=== PATIENT | female | born 1970 | race African-American/Black ===

== ENCOUNTER 2019-12-30 09:18 | Emergency (ER) | payer BC, SELFPAY ==
[2019-12-30 09:33] VITALS: BP 110/63; PULSE 103; RESP 17; TEMP 36.6; O2SAT 100
[2019-12-30 10:27] LABS: Basophils Absolute Auto 0.1 K/mm3 (0.0-0.1); Basophils Percent Auto 0.7 % (0.2-1.2); Eosinophils Absolute Auto 0.2 K/mm3 (0-0.3); Eosinophils Percent Auto 2.4 % (0-4.4); Hemoglobin 7.9 g/dL (12.0-15.0); Immature Granulocyte Absolute 0.05 K/mm3 (0.00-0.031); Immature Granulocyte Percent A 0.5 % (0-0.5); Lymphocytes Absolute Auto 1.65 K/mm3 (0.9-3.2); Lymphocytes Percent Auto 17.6 % (18.3-44.2); Mean Corpuscular HGB Conc 31.6 g/dl (32-36); Mean Corpuscular Hemoglobin 37.6 pg (26-34); Mean Platelet Volume 9.7 fl (7.4-10.4); Monocytes Absolute Auto 0.9 K/mm3 (0.1-0.6); Monocytes Percent Auto 9.5 % (2.6-8.5); Neutrophils Absolute Auto 6.5 K/mm3 (1.3-6.7); Neutrophils Percent Auto 69.3 % (45.5-73.1); Platelet Count Result 145 k/mm3 (150-375); Red Cell Distribution Width 20.7 % (11.5-14.5); White Blood Count 9.4 K/mm3 (4.5-10.0)
[2019-12-30 10:42] LABS: Alanine Aminotransferase 27 U/L (4-35); Albumin Level 2.6 g/dL (3.5-5.1); Alkaline Phosphatase 106 U/L (38-126); Aspartate Amino Transferase 78 U/L (14-36); Bilirubin,Total 3.7 mg/dL (0.2-1.3); Blood Urea Nitrogen 10 mg/dL (7-17); Calcium 8.6 mg/dL (8.4-10.2); Carbon Dioxide 22 mmol/L (22-30); Chloride 101 mmol/L (98-107); Estimated CRCL calculation 71 ml/min; Estimated Glomerular Filt Rate > 60; Glucose 106 mg/dL (65-105); Lipase 264 U/L (23-300); Sodium 136 mmol/L (137-145)
[2019-12-30 10:46] LABS: Add Urine Microscopic? YES; Appearance Urine Clear (Clear); Bacteria Urine Trace /hpf; Bilirubin Urine 1+ (Negative); Blood Urine Negative (Negative); Color Urine Amber (Yellow); Glucose Urine UA Negative (Negative); Ketones Urine Negative (Negative); Leukocyte Esterase Ur Negative LEU/UL (Negative); Mucus Urine Few /lpf; Nitrate Urine Negative (Negative); Protein Urine 1+ mg/dL (Negative); RBC Urine 0-2 /hpf (0-2); Specific Grav Ur 1.023 (1.001-1.035); Squamous Epithelial Cell Urine Many /hpf (Few)
--- NOTE | 2019-12-30 11:39 | ED.GENADULT ---
HPI - General Adult General Chief complaint: Unspecified Stated complaint: abdominal swelling Time Seen by Provider: 12/30/19 12:01 Source: patient Mode of arrival: ambulatory Limitations: no limitations History of Present Illness HPI narrative: The patient is a 49 yo female who presents for evaluation of abddominal swelling and Related Data Home Medications Medication Instructions Recorded Confirmed bumetanide 1 mg PO BID 10/11/19 10/11/19 ferrous sulfate 325 mg PO BID 10/11/19 10/11/19 folic acid 1 mg PO DAILY 10/11/19 10/11/19 gabapentin 300 mg PO TID 10/11/19 10/11/19 lactulose 20 g PO BID 10/11/19 10/11/19 magnesium oxide 400 mg PO DAILY 10/11/19 10/11/19 pantoprazole 40 mg PO QAM 10/11/19 10/11/19 phytonadione (vitamin K1) 5 mg PO DAILY 10/11/19 10/11/19 propranolol 10 mg PO Q8H 10/11/19 10/11/19 rifaximin 550 mg PO BID 10/11/19 10/11/19 spironolactone 100 mg PO DAILY 10/11/19 10/11/19 thiamine HCl (vitamin B1) 100 mg PO DAILY 10/11/19 10/11/19 metoprolol succinate 50 mg PO DAILY 10/12/19 10/12/19 Allergies Allergy/AdvReac Type Severity Reaction Status Date / Time No Known Allergies Allergy Verified 12/30/19 09:36 [facility] Past Medical History Medical History (Updated 12/30/19 @ 12:38 by Sari Mitchell MD) Alcoholic liver failure Anemia of chronic disease Anxiety Cirrhosis of liver Depression GI bleed History of abdominal paracentesis HTN (hypertension) Peripheral neuropathy Surgical History Surgical History No significant past surgical history Social History Social History Social History: She is . She has a total of 4 bilateral children. Two with her current in to the previous relationship. 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 She is working on getting disability. She is designated as a full code. Smoking status: Never smoker Alcohol intake: never Substance use: never Substance use type: does not use Gender identity (if verbalized by the patient): Female Spiritual care concerns: No Agree to blood products: Yes Course Vital Signs Vital signs: Vital Signs Temperature 36.6 C 12/30/19 09:33 Pulse Rate 103 H 12/30/19 09:33 Respiratory Rate 17 12/30/19 09:33 Blood Pressure 110/63 12/30/19 09:33 Pulse Oximetry 100 12/30/19 09:33 Temperature 36.6 C 12/30/19 09:33 Pulse Rate 97 12/30/19 13:50 Respiratory Rate 16 12/30/19 13:50 Blood Pressure 117/73 12/30/19 13:50 Pulse Oximetry 100 12/30/19 13:50 Medical Decision Making Vital Signs Vital Signs: Vital Signs Temperature 36.6 C 12/30/19 09:33 Pulse Rate 103 H 12/30/19 09:33 Respiratory Rate 17 12/30/19 09:33 Blood Pressure 110/63 12/30/19 09:33 Pulse Oximetry 100 12/30/19 09:33 Temperature 36.6 C 12/30/19 09:33 Pulse Rate 97 12/30/19 13:50 Respiratory Rate 16 12/30/19 13:50 Blood Pressure 117/73 12/30/19 13:50 Pulse Oximetry 100 12/30/19 13:50 Lab Data Result diagrams: 12/30/19 10:18 12/30/19 10:18 Labs: Lab Results 12/30/19 12/30/19 12/30/19 Range/Units 10:18 10:18 10:25 WBC 9.4 (4.5-10.0) K/mm3 RBC 2.10 L (4.2-5.4) M/mm3 Hgb 7.9 L (12.0-15.0) g/dL Hct 25.0 L (37.0-47.0) % MCV 119.0 H (80-100) fl MCH 37.6 H (26-34) pg MCHC 31.6 L (32-36) g/dl RDW 20.7 H (11.5-14.5) % Plt Count 145 L D (150-375) k/mm3 MPV 9.7 (7.4-10.4) fl Immature Gran % (Auto) 0.5 (0-0.5) % Neut % (Auto) 69.3 (45.5-73.1) % Lymph % (Auto) 17.6 L (18.3-44.2) % Frontier % (Auto) 9.5 H (2.6-8.5) % Eos % (Auto) 2.4 (0-4.4) % Baso % (Auto) 0.7 (0.2-1.2) % Lymph # (Auto) 1.65 (0.9-3.2) K/mm3 Frontier # (Auto) 0.9 H (0.1-0.6) K/mm3 Eos # (Auto) 0.2 (0-0.3) K/mm3 Baso # (Auto) 0.1 (0.
--- NOTE | 2019-12-30 12:19 | ED.GENADULT ---
HPI - General Adult General Chief complaint: Unspecified Stated complaint: abdominal swelling Time Seen by Provider: 12/30/19 12:01 Source: patient and RN notes reviewed Mode of arrival: ambulatory Limitations: no limitations History of Present Illness HPI narrative: Pt is a 49 y/o female with a Hx of alcoholic cirrhosis, who presents to the ED with c/o ABD distension. She notes that she has a Hx of frequent paracentesis, and states that she currently follows with conference services director, Dr. Frye, at [facility]. Pt notes that her last paracentesis was on 12/17/19, and states that she hasn't been able to schedule another appointment until next week. She states that her ABD has been intermittently distended recently. Pt reports SOB accompanying her distension, but denies any ABD pain, nausea, vomiting, fever, or chills. MD complaint: ABD Distension Location: abdomen Associated symptoms: shortness of breath Related Data Home Medications Medication Instructions Recorded Confirmed bumetanide 1 mg PO BID 10/11/19 10/11/19 ferrous sulfate 325 mg PO BID 10/11/19 10/11/19 folic acid 1 mg PO DAILY 10/11/19 10/11/19 gabapentin 300 mg PO TID 10/11/19 10/11/19 lactulose 20 g PO BID 10/11/19 10/11/19 magnesium oxide 400 mg PO DAILY 10/11/19 10/11/19 pantoprazole 40 mg PO QAM 10/11/19 10/11/19 phytonadione (vitamin K1) 5 mg PO DAILY 10/11/19 10/11/19 propranolol 10 mg PO Q8H 10/11/19 10/11/19 rifaximin 550 mg PO BID 10/11/19 10/11/19 spironolactone 100 mg PO DAILY 10/11/19 10/11/19 thiamine HCl (vitamin B1) 100 mg PO DAILY 10/11/19 10/11/19 metoprolol succinate 50 mg PO DAILY 10/12/19 10/12/19 Allergies Allergy/AdvReac Type Severity Reaction Status Date / Time No Known Allergies Allergy Verified 12/30/19 09:36 Review of Systems Review of Systems: Narrative: CONSTITUTIONAL: Denies fever, chills, or sweats. CARDIOVASCULAR: Denies chest pain, palpitations, or edema. RESPIRATORY: Denies cough. Reports dyspnea. GASTROINTESTINAL: Reports ABD distension. Denies abdominal pain, nausea, vomiting, or diarrhea. All systems reviewed & are unremarkable except as noted in HPI and below PMFSH Past Medical History Medical History (Updated 12/30/19 @ 12:38 by Sari Mitchell MD) Alcoholic liver failure Anemia of chronic disease Anxiety Cirrhosis of liver Depression GI bleed History of abdominal paracentesis HTN (hypertension) Peripheral neuropathy Surgical History Surgical History No significant past surgical history Social History Social History Social History: She is . She has a total of 4 bilateral children. Two with her current in to the previous relationship. 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 She is working on getting disability. She is designated as a full code. Smoking status: Never smoker Alcohol intake: never Substance use: never Substance use type: does not use Gender identity (if verbalized by the patient): Female Spiritual care concerns: No Agree to blood products: Yes Comments Agricultural Produce Commission Agent is Dr. Frye. Exam Narrative: Exam Narrative: GENERAL: Well-appearing, well-nourished, and in no acute distress. HEAD: Normocephalic, atraumatic. EYES: PERRLA and EOMI. ENT: Nares clear, no rhinorrhea or epistaxis. Mucous membranes moist. NECK: Supple. CHEST: Clear to auscultation. No respiratory distress. HEART: Regular rate and rhythm. No murmur heard. Normal peripheral pulses. ABDOMEN: Soft, nontender, nondistended, normal active bowel sounds. EXTREMITIES: Normal range of motion. No edema. SKIN: Warm, dry, no rash. NEURO: No focal deficits. Alert and oriented. Course Course Emergency Course: Patient presents for abdominal distention, but on exam patient's abdomen is soft, nontender, it is not distended. She does not have a posit
[2019-12-30 13:50] VITALS: BP 117/73; PULSE 97; RESP 16; O2SAT 100
== END 2019-12-30 13:50 | disposition home or self-care (01) ==
PROVIDERS: Emergency Medicine; Emergency Provider Emergency Medicine; PCP Emergency Medicine
DX: K70.30 Alcoholic cirrhosis of liver without ascites (principal); I10 Essential (primary) hypertension; G62.9 Polyneuropathy, unspecified; D63.8 Anemia in other chronic diseases classified elsewhere
CPT/HCPCS: 36415; 80053; 81001; 81025; 83690; 85025; 99283

== ENCOUNTER 2020-01-07 09:40 | Outpatient (CLI) | payer BC, SELFPAY ==
--- NOTE | ~2020-01-07 | US_ITS ---
EXAMINATION: US paracentesis abd w/image DATE: 01/07/2020 12:26 INDICATION: Ascites. TECHNIQUE: The procedure and its risks, benefits, and alternatives were discussed with the patient. P otential risks discussed included bleeding and infection. The skin was prepped and draped in sterile fashion. 1% lidocaine was used for local anesthesia. Under ultrasound guidance, a 5 Fr catheter with trochar was advanced into the ascites in the right lower quadrant. Fluid was aspirated. The catheter was removed, and a dressing was applied. There were no immediate complications. FINDINGS: Ultrasound images demonstrate ascites and the catheter within the fluid. IMPRESSION: 1. Successful ultrasound-guided paracentesis yielding 2300 mL of yellow fluid. Reviewed, dictated and finalized at location A. OL STILL OPERATOR
[2020-01-07 10:53] LABS: Mean Platelet Volume 10.3 fl (7.4-10.4); Platelet Count Result 141 k/mm3 (150-375)
[2020-01-07 11:07] LABS: INR 1.9; Prothrombin Time 21.4 Seconds (11.1-14.7)
== END 2020-01-07 09:41 | disposition home or self-care (01) ==
PROVIDERS: PCP Emergency Medicine; Visit Provider Emergency Medicine
DX: K74.60 Unspecified cirrhosis of liver (principal)
CPT/HCPCS: 36415; 49083; 85049; 85610

== ENCOUNTER 2020-02-02 07:30 | Outpatient (CLI) | payer BC, SELFPAY ==
--- NOTE | ~2020-02-02 | US_ITS ---
EXAMINATION: US paracentesis abd w/image DATE: 02/02/2020 09:10 INDICATION: Cirrhosis and ascites. TECHNIQUE: The procedure and its risks and benefits were discussed with the patient. Potential risks discussed included bleeding and infection. The skin was prepped and draped in sterile fashion. 1% lid ocaine was used for local anesthesia. Under ultrasound guidance, a 5 Fr catheter with trochar was adv anced into the ascites in the left lower quadrant. Fluid was aspirated into vacuum bottles. The mart ter was removed, and a dressing was applied. There were no immediate complications. FINDINGS: Ultrasound images demonstrate ascites and the catheter within the fluid. IMPRESSION: 1. Successful ultrasound-guided paracentesis yielding 2400 mL of dark yellowish fluid. Reviewed, dictated and finalized at location A. IMPRESSION: 1. Successful ultrasound-guided paracentesis yielding 2400 mL of dark yellowis h fluid.
[2020-02-02 07:55] LABS: Mean Platelet Volume 9.6 fl (7.4-10.4); Platelet Count Result 111 k/mm3 (150-375)
[2020-02-02 08:06] LABS: INR 1.9; Prothrombin Time 21.7 Seconds (11.1-14.7)
== END 2020-02-02 07:31 | disposition home or self-care (01) ==
LOC: ANHIMG 07:32
PROVIDERS: PCP Emergency Medicine; Visit Provider Emergency Medicine
DX: K74.60 Unspecified cirrhosis of liver (principal); R18.8 Other ascites
CPT/HCPCS: 36415; 49083; 85049; 85610

== ENCOUNTER 2020-03-03 10:14 | Outpatient (RCR) | payer BC, SELFPAY ==
--- NOTE | ~2020-03-03 | US_ITS ---
EXAMINATION: US paracentesis abd w/image DATE: 03/03/2020 11:04 INDICATION: Ascites. TECHNIQUE: The procedure and its risks, benefits, and alternatives were discussed with the patient. P otential risks discussed included bleeding and infection. The skin was prepped and draped in sterile fashion. 1% lidocaine was used for local anesthesia. Under ultrasound guidance, a 5 Fr catheter with trochar was advanced into the ascites in the left lower quadrant. Fluid was aspirated. The catheter w as removed, and a dressing was applied. There were no immediate complications. FINDINGS: Ultrasound images demonstrate ascites and the catheter within the fluid. IMPRESSION: 1. Successful ultrasound-guided paracentesis yielding 3200 mL of dark yellow fluid. Reviewed, dictated and finalized at location A. IMPRESSION: 1. Successful ultrasound-guided paracentesis yielding 3200 mL of dark yellow f luid.
== END 2020-05-22 23:59 | disposition home or self-care (01) ==
LOC: ANHIMG 10:14
PROVIDERS: PCP Emergency Medicine; Visit Provider Emergency Medicine
DX: K74.60 Unspecified cirrhosis of liver (principal); R18.8 Other ascites
CPT/HCPCS: 49083

== ENCOUNTER 2020-03-23 08:42 | Outpatient (CLI) | payer BC, SELFPAY ==
--- NOTE | ~2020-03-23 | US_ITS ---
EXAMINATION: US paracentesis abd w/image DATE: 03/23/2020 11:01 INDICATION: Ascites. TECHNIQUE: The procedure and its risks and benefits were discussed with the patient. Potential risks discussed included bleeding and infection. The skin was prepped and draped in sterile fashion. 1% lid ocaine was used for local anesthesia. Under ultrasound guidance, a 5 Fr catheter with trochar was adv anced into the ascites in the left lower quadrant. Fluid was aspirated into vacuum bottles. The mart ter was removed, and a dressing was applied. There were no immediate complications. FINDINGS: Ultrasound images demonstrate ascites and the catheter within the fluid. IMPRESSION: 1. Successful ultrasound-guided paracentesis yielding 2900 mL of yellow-colored fluid. Reviewed, dictated and finalized at location A. IMPRESSION: 1. Successful ultrasound-guided paracentesis yielding 2900 mL of yellow-colore d fluid.
[2020-03-23 08:59] LABS: Mean Platelet Volume 9.4 fl (7.4-10.4); Platelet Count Result 112 k/mm3 (150-375)
[2020-03-23 09:25] LABS: INR 2.2; Prothrombin Time 23.6 Seconds (11.1-14.7)
== END 2020-03-23 08:43 | disposition home or self-care (01) ==
PROVIDERS: PCP Emergency Medicine; Visit Provider Emergency Medicine
DX: K74.60 Unspecified cirrhosis of liver (principal); R18.8 Other ascites
CPT/HCPCS: 36415; 49083; 85049; 85610

== ENCOUNTER 2020-04-14 12:50 | Outpatient (CLI) | payer BC, SELFPAY ==
--- NOTE | ~2020-04-14 | US_ITS ---
EXAMINATION: US paracentesis abd w/image DATE: 04/14/2020 14:03 INDICATION: Ascites. TECHNIQUE: The procedure and its risks, benefits, and alternatives were discussed with the patient. P otential risks discussed included bleeding and infection. The skin was prepped and draped in sterile fashion. 1% lidocaine was used for local anesthesia. Under ultrasound guidance, a 5 Fr catheter with trochar was advanced into the ascites in the left lower quadrant. Fluid was aspirated. The catheter w as removed, and a dressing was applied. There were no immediate complications. FINDINGS: Ultrasound images demonstrate ascites and the catheter within the fluid. IMPRESSION: 1. Successful ultrasound-guided paracentesis yielding 3500 mL of yellow fluid. Reviewed, dictated and finalized at location A.
== END 2020-04-14 12:51 | disposition home or self-care (01) ==
PROVIDERS: PCP Emergency Medicine; Visit Provider Emergency Medicine
DX: K74.60 Unspecified cirrhosis of liver (principal)
CPT/HCPCS: 49083; C1729

== ENCOUNTER 2020-04-26 23:48 | Inpatient (IN) | payer BC, SELFPAY ==
--- NOTE | ~2020-04-26 | US_ITS ---
EXAMINATION: US paracentesis abd w/image DATE: 04/28/2020 13:40 INDICATION: Ascites. TECHNIQUE: The procedure and its risks and benefits were discussed with the patient. Potential risks discussed included bleeding and infection. The skin was prepped and draped in sterile fashion. 1% lid ocaine was used for local anesthesia. Under ultrasound guidance, a 5 Fr catheter with trochar was adv anced into the ascites in the right lower quadrant. Fluid was aspirated into vacuum bottles. The cath eter was removed, and a dressing was applied. There were no immediate complications. FINDINGS: Ultrasound images demonstrate ascites and the catheter within the fluid. IMPRESSION: 1. Successful ultrasound-guided paracentesis yielding 2100 mL of dark [id number] fluid. Reviewed, dictated and finalized at location A. IMPRESSION: 1. Successful ultrasound-guided paracentesis yielding 2100 mL of dark reddish- roni-colored fluid.
[2020-04-26 23:48] VITALS: BP 105/46; PULSE 89; RESP 16; TEMP 37.2; O2SAT 100
[2020-04-27] VITALS (33 sets, daily range): BP systolic 78–126; BP diastolic 31–88; PULSE 82–97; RESP 12–22; TEMP 36.2–37.1; O2SAT 95–100
--- NOTE | 2020-04-27 00:08 | ED.ABDPAIN ---
HPI - Abdominal Pain General Chief Complaint: Vaginal Bleeding Stated Complaint: vaginal bleeding/sob Time Seen by Provider: 04/26/20 23:56 Source: patient and family Mode of arrival: ambulatory Limitations: no limitations History of Present Illness HPI narrative: Patient is a 49-year-old female with a history of cirrhosis, alcohol abuse who presents for evaluation of vaginal bleeding. Patient reports a 1 day history of heavy vaginal bleeding, soaking through at least 1 pad per hour over the last several hours. Patient reports some associated shortness of breath. She denies chest pain, she reports feeling lightheaded, no dizziness. No abdominal pain or pelvic cramping. She states that this is when she gets typical menses but is much heavier than normal. No vaginal discharge, painful urination. Related Data Home Medications Medication Instructions Recorded Confirmed lactulose 20 g PO BID 10/11/19 10/11/19 propranolol 10 mg PO Q8H 10/11/19 10/11/19 spironolactone 100 mg PO DAILY 10/11/19 10/11/19 Allergies Allergy/AdvReac Type Severity Reaction Status Date / Time No Known Allergies Allergy Verified 12/30/19 09:36 Review of Systems Review of Systems: Narrative: CONSTITUTIONAL: Denies fever, chills, or sweats. CARDIOVASCULAR: Denies chest pain, palpitations, or edema. RESPIRATORY: Denies cough or dyspnea. GASTROINTESTINAL: Denies abdominal pain, nausea, vomiting, or diarrhea. GENITOURINARY: Denies dysuria or hematuria. Reports vaginal bleeding. SKIN: Denies rash or itching. MUSCULOSKELETAL: Denies back pain, joint pain, or myalgia. NEUROLOGIC: Denies headache, numbness, or weakness. Reports lightheadedness. [facility] Past Medical History Medical History Alcoholic liver failure Anemia of chronic disease Anxiety Cirrhosis of liver Depression GI bleed History of abdominal paracentesis HTN (hypertension) Peripheral neuropathy Surgical History Surgical History No significant past surgical history Family History Family History Mother Family history of coronary artery disease, Onset Age: 63 Congestive heart failure Father Diabetes mellitus Sibling Epilepsy Social History Social History Social History: She is . She has a total of 4 bilateral children. Two with her current in to the previous relationship. 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 She is working on getting disability. She is designated as a full code. Smoking status: Never smoker Alcohol intake: never Substance use: never Substance use type: does not use Gender identity (if verbalized by the patient): Female Spiritual care concerns: No Agree to blood products: Yes Exam Narrative: Exam Narrative: GENERAL: Awake, alert, conversant HEAD: Normocephalic, atraumatic. EYES: PERRLA and EOMI. ENT: Nares clear, no rhinorrhea or epistaxis. Mucous membranes moist. NECK: Supple. CHEST: No respiratory distress, breathing even and non labored HEART: Regular rate, sinus rhythm ABDOMEN: Distended, ascites present, nontender ANIMAL TECHNICIAN: Labia majora and minora normal without lesions. Vagina with + blood and blood clot. No cervical motion tenderness. No adnexal tenderness or fullness bilaterally. No discharge present. No brisk bleeding. EXTREMITIES: Normal range of motion. No edema. SKIN: Warm, dry, no rash. NEURO:No focal deficits. Alert and oriented x3 Course Vital Signs Vital signs: Vital Signs Temperature 37.2 C 04/26/20 23:48 Pulse Rate 89 04/26/20 23:48 Respiratory Rate 16 04/26/20 23:48 Blood Pressure 105/46 L 04/26/20 23:48 Pulse Oximetry 100 04/26/20 23:48 Temperature 37.2 C 04/26/20 23:48 Pulse Rate 89
[2020-04-27 00:38] LABS: Basophils Absolute Auto 0.1 K/mm3 (0.0-0.1); Basophils Percent Auto 0.4 % (0.2-1.2); Eosinophils Absolute Auto 0.7 K/mm3 (0-0.3); Eosinophils Percent Auto 5.5 % (0-4.4); Immature Granulocyte Absolute 0.23 K/mm3 (0.00-0.031); Immature Granulocyte Percent A 1.8 % (0-0.5); Lymphocytes Absolute Auto 2.42 K/mm3 (0.9-3.2); Lymphocytes Percent Auto 19.3 % (18.3-44.2); Mean Corpuscular HGB Conc 30.7 g/dl (32-36); Mean Corpuscular Hemoglobin 36.1 pg (26-34); Mean Corpuscular Volume 117.6 fl (80-100); Mean Platelet Volume 10.3 fl (7.4-10.4); Monocytes Absolute Auto 1.6 K/mm3 (0.1-0.6); Monocytes Percent Auto 12.9 % (2.6-8.5); Neutrophils Absolute Auto 7.5 K/mm3 (1.3-6.7); Neutrophils Percent Auto 60.1 % (45.5-73.1); Platelet Count Result 124 k/mm3 (150-375); Red Blood Count 1.08 M/mm3 (4.2-5.4); Red Cell Distribution Width 17.2 % (11.5-14.5); White Blood Count 12.5 K/mm3 (4.5-10.0)
[2020-04-27 00:42] LABS: Hematocrit 12.7 % (37.0-47.0); Hemoglobin 3.9 g/dL (12.0-15.0)
[2020-04-27 00:53] LABS: Alanine Aminotransferase 15 U/L (4-35); Alkaline Phosphatase 75 U/L (38-126); Aspartate Amino Transferase 49 U/L (14-36); Bilirubin,Total 3.9 mg/dL (0.2-1.3); Blood Urea Nitrogen 20 mg/dL (7-17); Calcium 7.6 mg/dL (8.4-10.2); Carbon Dioxide 23 mmol/L (22-30); Chloride 104 mmol/L (98-107); Estimated Glomerular Filt Rate 45; Glucose 115 mg/dL (65-105); Potassium 3.6 mmol/L (3.4-5.0); Sodium 133 mmol/L (137-145)
[2020-04-27 01:04] LABS: INR 2.7; Prothrombin Time 28.2 Seconds (11.1-14.7)
[2020-04-27 01:05] LABS: Partial Thromboplastin Time 41.8 SECONDS (22.3-36.8)
[2020-04-27] MEDS: TRANEXAMIC ACID 1,000 MG/10 ML AMPUL 1000 MG IV PUSH (02:00)
[2020-04-27 02:21] LABS: Free T4 Free Thyroxine Reflex 1.61 ng/dL (0.78-2.19)
--- NOTE | 2020-04-27 03:07 | ADMGEN ---
This patient, Juany Milan, was admitted to IMU Room 214-01. Patient/family oriented to hospital policies and general routines including ID bracelet, bed and alarms, visiting hours, pain management, procedures, bathroom and other care routines, personal items, smoking policy, room service/diet, and visiting hours. Valuables list has been completed. Information on how to activate the Rapid Response Team has been discussed. Patient/Family are encouraged to report perceived risks to care and to ask questions if they do not understand what they are told or what they should do.
[2020-04-27 03:13] LABS: Total Triiodothyronine (T3) 0.63 NG/ML (0.97-1.69)
--- NOTE | 2020-04-27 05:10 | PM.IMCN ---
Assessment and Plan Assessment and plan (1) Hemorrhagic shock: Code(s): R57.8 - Other shock Status: Acute Assessment and Plan: Secondary to active vaginal bleeding and acquired coagulopathy from liver disease. Advise that the patient be transferred to ICU now, Consult Dr. Lynch. Strict bedrest. Continue IV NS bolus and pRBC transfusion. We will also transfuse FFP, platelets and 2 more units of pRBCs. Vitamin K IV. Close monitoring of vital signs and urine output. Monitor H/H, transfuse further pRBCs as needed. I have called and discussed the pateint's current clinical condition in detail with Dr. Huynh, attending physician. (2) Vaginal bleeding: Code(s): N93.9 - Abnormal uterine and vaginal bleeding, unspecified Status: Acute Assessment and Plan: Primary team to manage active vaginal bleeding. (3) Acute renal failure: Qualifiers: Acute renal failure type: unspecified Qualified Code(s): N17.9 - Acute kidney failure, unspecified Code(s): N17.9 - Acute kidney failure, unspecified Status: Acute Assessment and Plan: Likely prerenal in origin given vaginal bleed. Continue IV fluid challenge and pRBC transfusion. Monitor renal funciton and urine output. Avoid nephrotoxic agents, renally dose medications. (4) Ascites due to alcoholic cirrhosis: Code(s): K70.31 - Alcoholic cirrhosis of liver with ascites Status: Chronic Assessment and Plan: The patient will need to undergo paracentesis when clinically stable. (5) Cirrhosis of liver: Qualifiers: Ascites presence: without ascites Hepatic cirrhosis type: alcoholic cirrhosis Qualified Code(s): K70.30 - Alcoholic cirrhosis of liver without ascites Code(s): K74.60 - Unspecified cirrhosis of liver Status: Chronic Assessment and Plan: Monitor Liver function. (6) Thrombocytopenia: Code(s): D69.6 - Thrombocytopenia, unspecified Status: Chronic Assessment and Plan: Secondary to alcoholic liver disease. Monitor platelets, transfuse as needed. (7) Abnormal thyroid function test: Code(s): R94.6 - Abnormal results of thyroid function studies Status: Acute Assessment and Plan: r/o undiagnosed hypothyroidism. The patient will need to be started on Levothyroxine 1.6 mcg/kg/day before discharge. (8) HTN (hypertension): Qualifiers: Hypertension type: essential hypertension Qualified Code(s): I10 - Essential (primary) hypertension Code(s): I10 - Essential (primary) hypertension Status: Chronic Assessment and Plan: We will hold antihypertensives given that the patient has been hypotensive. (9) Peripheral neuropathy: Qualifiers: Peripheral neuropathy type: polyneuropathy, other Qualified Code(s): G62.89 - Other specified polyneuropathies Code(s): G62.9 - Polyneuropathy, unspecified Status: Chronic Assessment and Plan: Resume gabapentin when appropriate. Additional Plan Total critical care timem spent tonight exceeded 40 minutes. Date of service was 04/27/2020 at 4:30 hrs. HPI Data of Consult Consult date: 04/27/20 Requesting Physician: Dean Huynh MD Primary Care Provider: J Luis Mcghee MD Consult Narrative Narrative: Thank you for consulting us to see this 49 year old female with known cirrhosis secondary to alcohol abuse. We have been consulted to evaluate this patient for hypotension as nursing staff reported a blood pressure that was rechecked manually at 82/42 mm Hg. The patient presented to the ER tonight with a history of 3 days of bright red vaginal bleeding which as worsened over the past 2 days. She reports using 4-5 vaginal pads every hour over the past 2 days. She denies any chest pain but has been experiencing lightheadedness, dizziness, fatigue, generalized weakness, and shortness of breath. The patient has never had vaginal
--- NOTE | 2020-04-27 05:39 | PM.IMHP ---
H&P: HPI History of Present Illness Chief complaint: Vaginal bleeding, anemia Narrative: Juany Milan is a 49 year old female who presented to the ED for acute menorrhagia. Pt states her menses started on 04/18/20. She reports she has normal monthly menses which are heavy but states this episode was heavier than usual. She states her bleeding had increased over the last two days. She state she presented to the ED because she kept passing large clots. She reports soaking through 4-5 pads/hr. She reports fatigue, SOB, general malaise, and some dizziness. She denies any syncopal episodes. Her medical history is complicated by chronic alcohol use and cirrhosis of the liver. She reports her last alcoholic drink was 3 months ago. She receives weekly paracentesis due to her liver disease and is scheduled to have another done today. Review of Systems Review of Systems: All systems reviewed & are unremarkable except as noted in HPI and below PMFSH Past Medical History Medical History Alcoholic liver failure Anemia of chronic disease Anxiety Cirrhosis of liver Depression GI bleed History of abdominal paracentesis HTN (hypertension) Peripheral neuropathy Surgical History Surgical History No significant past surgical history Family History Family History Mother Family history of coronary artery disease, Onset Age: 63 Congestive heart failure Father Diabetes mellitus Sibling Epilepsy Social History Social History Social History: She is . She has a total of 4 bilateral children. Two with her current in to the previous relationship. 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 She is working on getting disability. She is designated as a full code. Smoking status: Never smoker Alcohol intake: current Substance use: unknown Substance use type: does not use Gender identity (if verbalized by the patient): Female Spiritual care concerns: No Agree to blood products: Yes Meds Home Medications and Allergies Home Medications Medication Instructions Recorded Confirmed Type lactulose 20 g PO BID 10/11/19 04/27/20 History bumetanide 1 mg tablet 1 mg PO BID #30 tablet 03/07/20 04/27/20 Rx ferrous sulfate 325 mg (65 mg 325 mg PO BID #30 tablet 03/07/20 04/27/20 Rx iron) tablet folic acid 1 mg tablet 1 mg PO DAILY #30 tablet 03/07/20 04/27/20 Rx magnesium oxide 400 mg PO DAILY #30 tablet 03/07/20 04/27/20 Rx metoprolol succinate 50 mg 50 mg PO DAILY #30 tablet 03/07/20 04/27/20 Rx tablet,extended release 24 hr pantoprazole 40 mg tablet,delayed 40 mg PO QAM #30 tablet 03/07/20 04/27/20 Rx release phytonadione (vitamin K1) 5 mg 5 mg PO DAILY #30 tablet 03/07/20 04/27/20 Rx tablet rifaximin 550 mg tablet 550 mg PO BID #30 tablet 03/07/20 04/27/20 Rx thiamine HCl (vitamin B1) 100 mg 100 mg PO DAILY #30 tablet 03/07/20 04/27/20 Rx tablet gabapentin 300 mg PO TID 04/27/20 04/27/20 History Allergies Allergy/AdvReac Type Severity Reaction Status Date / Time No Known Allergies Allergy Verified 12/30/19 09:36 Vital Signs Vital Signs - 24 hr 04/26/20 23:48 04/27/20 02:16 04/27/20 02:36 Temperature 37.2 C 36.7 C Pulse Rate 89 90 91 Respiratory Rate 16 20 20 Blood Pressure 105/46 L 89/55 L 104/72 Pulse Oximetry 100 100 98 04/27/20 02:50 04/27/20 04:20 04/27/20 04:36 Temperature 36.7 C 36.7 C 36.9 C Pulse Rate 93 83 84 Respiratory Rate 18 18 18 Blood Pressure 87/43 L 82/42 L 100/53 L Pulse Oximetry 100 98 100 Exam Const: General: comfortable and no acute distress Neck: Neck: no JVD Lymphatic: lymphadenopathy not noted Resp: Effort & Inspection: normal respiratory effort Auscultation: clear t
[2020-04-27] MEDS: SODIUM CHLORIDE 0.9% IV 1,000 ML 999 ML IV CONT (05:56)
[2020-04-27] MEDS: PHYTONADIONE ADULT INJ 10 MG in DEXTROSE 5% IN WATER 50 ML 100 MG IVPB (06:00)
--- NOTE | 2020-04-27 06:16 | PC.NURSE ---
PATIENT TRANSFERRED FROM IMU ROOM 214 TO ICU 10 WITH BELONGINGS. REPORT TAKEN FROM MADDIE LOO. PATIENT PLACED ON VITALS MONITOR. WILL CONTINUE TO MONITOR PATIENT FOR CHANGES IN STATUS AND WILL FOLLOW CURRENT PLAN OF CARE.
--- NOTE | 2020-04-27 07:13 | WPDANESEPPF ---
Anes - Initial Pre Proc Eval Procedure: Operation Date: 04/27/20 08:15 Proposed Procedures p SUCTION DILITATION AND CURETTAGE - Dean Huynh MD s POSSIBLE LAPAROSCOPY,POSSIBLE LAPAROTOMY - Dean Huynh MD Date/Time: 04/27/20 07:13 Surgeon: Dean Huynh MD Pre Op Diagnosis: Vaginal bleeding, anemia Patient Data Age: 49 Gender: F Height: Weight: 100 kg Last Vital Signs Temp 36.9 C 04/27/20 06:48 Pulse 86 04/27/20 06:48 Resp 18 04/27/20 06:48 BP 92/50 L 04/27/20 06:48 Pulse Ox 98 04/27/20 06:48 Allergies Allergy/AdvReac Type Severity Reaction Status Date / Time No Known Allergies Allergy Verified 12/30/19 09:36 Home Medications Medication Instructions Recorded Confirmed Type lactulose 20 g PO BID 10/11/19 04/27/20 History bumetanide 1 mg tablet 1 mg PO BID #30 tablet 03/07/20 04/27/20 Rx ferrous sulfate 325 mg (65 mg 325 mg PO BID #30 tablet 03/07/20 04/27/20 Rx iron) tablet folic acid 1 mg tablet 1 mg PO DAILY #30 tablet 03/07/20 04/27/20 Rx magnesium oxide 400 mg PO DAILY #30 tablet 03/07/20 04/27/20 Rx metoprolol succinate 50 mg 50 mg PO DAILY #30 tablet 03/07/20 04/27/20 Rx tablet,extended release 24 hr pantoprazole 40 mg tablet,delayed 40 mg PO QAM #30 tablet 03/07/20 04/27/20 Rx release phytonadione (vitamin K1) 5 mg 5 mg PO DAILY #30 tablet 03/07/20 04/27/20 Rx tablet rifaximin 550 mg tablet 550 mg PO BID #30 tablet 03/07/20 04/27/20 Rx thiamine HCl (vitamin B1) 100 mg 100 mg PO DAILY #30 tablet 03/07/20 04/27/20 Rx tablet gabapentin 300 mg PO TID 04/27/20 04/27/20 History Laboratory Tests 04/27/20 04/27/20 04/27/20 00:29 00:29 00:29 WBC 12.5 K/mm3 H K/mm3 (4.5-10.0) RBC 1.08 M/mm3 L M/mm3 (4.2-5.4) Hgb 3.9 g/dL L* D g/dL (12.0-15.0) Hct 12.7 % L* % (37.0-47.0) MCV 117.6 fl H fl (80-100) MCH 36.1 pg H pg (26-34) MCHC 30.7 g/dl L g/dl (32-36) RDW 17.2 % H % (11.5-14.5) Plt Count 124 k/mm3 L k/mm3 (150-375) MPV 10.3 fl fl (7.4-10.4) Immature Gran % (Auto) 1.8 % H % (0-0.5) Neut % (Auto) 60.1 % % (45.5-73.1) Lymph % (Auto) 19.3 % % (18.3-44.2) [place] % (Auto) 12.9 % H % (2.6-8.5) Eos % (Auto) 5.5 % H % (0-4.4) Baso % (Auto) 0.4 % % (0.2-1.2) Lymph # (Auto) 2.42 K/mm3 K/mm3 (0.9-3.2) [place] # (Auto) 1.6 K/mm3 H K/mm3 (0.1-0.6) Eos # (Auto) 0.7 K/mm3 H K/mm3 (0-0.3) Baso # (Auto) 0.1 K/mm3 K/mm3 (0.0-0.1) Abs Immat Gran (auto) 0.23 K/mm3 H K/mm3 (0.00-0.031) Absolute Neuts (auto) 7.5 K/mm3 H K/mm3 (1.3-6.7) Absolute Nucleated RBC 0.0 K/mm3 K/mm3 (0.0-0.012) Nucleated RBC % 0.0 % % (0.0-0.2) PT 28.2 Seconds H Seconds (11.1-14.7) INR 2.7 APTT 41.8 SECONDS H SECONDS (22.3-36.8) Sodium 133 mmol/L L mmol/L (137-145) Potassium 3.6 mmol/L mmol/L (3.4-5.0) Chloride 104 mmol/L mmol/L (98-107) Carbon Dioxide 23 mmol/L mmol/L (22-30) BUN 20 mg/dL H D mg/dL (7-17) Creatinine 1.50 mg/dL H mg/dL (0.7-1.0) Estim Creat Clear Calc Not Reportable Estimated GFR 45 L (59 - ) Glucose 115 mg/dL H mg/dL (65-105) Calcium 7.6 mg/dL L mg/dL (8.4-10.2) Total Bilirubin 3.9 mg/dL H mg/dL (0.2-1.3) AST 49 U/L H U/L (14-36) ALT 15 U/L U/L (4-35) Alkaline Phosphatase 75 U/L U/L (38-126) Total Protein 6.0 g/dL L g/dL (6.3-8.2) Albumin 2.0 g/dL L g/dL (3.5-5.1) TSH (Reflex) Free T4 Total T3 Blood Type Antibody Screen Crossmatch 04/27/20 04/27/20 04/27/20 00:29 00:29 00:29 WBC RBC
[2020-04-27] MEDS: LIDO 1%/EPINEPHRINE 1:100,000 20 ML VIAL 10 ML INFILTRATE (07:29)
--- NOTE | 2020-04-27 08:07 | PM.PROC ---
Procedure Note - Detailed Date of procedure: 04/27/20 Pre-op diagnosis: Vaginal bleeding, anemia hemorrhagic shock Procedure performed: hysteroscopy, dilation and curettage, paracervical block, endometrial ablation Description of procedure: The risks, benefits, indications and alternatives were reviewed with the patient and informed consent was obtained. The patient was taken to the operating room and placed under general anesthesia without incident. A vaginal exam was performed and brisk bright red bleeding was noted from the external cervical os. The uterus was noted to be anteverted. The patient was placed in dorsolithotomy position, prepped and draped in the usual sterile fashion. Vega retractors were placed anteriorly and posteriorly in the vagina, and the cervix was grasped with a single tooth tenaculum. A paracervical block was performed wiht 1% lidocaine. The cervix was dilated and the hysteroscope was introduced. The cervical canal was visualized and the hysteroscope was passed into the uterine cavity without incident. The endometrial lining was visualized. Both ostia of the fallopian tubes were visualized and appear to be grossly normal. The hysteroscope was removed, and the cervix was further dilated to allow for passage of the sharp curette. The sharp curette was advanced to the fundus and endometrial curettage was performed, with the curettage sampling being preserved and sent for pathology. The uterus sounded to 8.5 cm total, with the cervical length measured as 3 cm, with a difference of 5.5 cm for the uterine cavity. The Novasure was introduced into the cavity, and the uterine cavity width was measured to be 3.75 cm. Power setting was 112 on the Novasure. The device was tested and noted to have good seal, and the ablation process itself took 55 seconds. The Novasure device was removed and the hysteroscope was reintroduced, visualizing the ablation of the endometrium in total. There was minimal bleeding noted and the Tenaculum clamp was removed with good hemostasis noted. Instrument, sharp, and sponge counts were correct. The patient tolerated the procedure well. The patient was taken to the recovery area in stable condition. Anesthesia: GETA Surgeon: Dean Huynh MD Estimated blood loss (mL): 150 Urine output (mL): 25 Drains: No Packing: No Pathology: yes (endometrial curettings) Complications: No immediate complications Condition: stable Disposition: ICU Findings: thickened endometrial lining, normal appearing tubal ostia bilaterally
[2020-04-27] MEDS: LACTATED RINGERS 1,000 ML 30 ML IV CONT (08:18)
--- NOTE | 2020-04-27 08:20 | SUR.OPER ---
EBL:150cc
--- NOTE | 2020-04-27 08:22 | SUR.OPER ---
NOVASURE SETTINGS:LENGTH:5.5, WIDTH:3.7, POWER:112
--- NOTE | 2020-04-27 08:48 | SUR.PREOP ---
fresh frozen plasma [id number] started, given and completed by LEAH Espinoza documented by Lizbeth Rivera
--- NOTE | 2020-04-27 08:53 | PM.IMPN ---
Progress Note: A&P Assessment and Plan (1) Hemorrhagic shock: Code(s): R57.8 - Other shock Status: Acute Assessment and Plan: Secondary to active vaginal bleeding and acquired coagulopathy from liver disease. BP has improved with IV fluid and blood products. Vitamin K IV given once. Close monitoring of vital signs and urine output in ICU setting. Monitor H/H and other lines and transfuse as needed. (2) Vaginal bleeding: Code(s): N93.9 - Abnormal uterine and vaginal bleeding, unspecified Status: Acute Assessment and Plan: Primary team to manage active vaginal bleeding. Taken to OR today for hysteroscopy, dilation and curettage, paracervical block, and endometrial ablation. EBL 150mL. (3) Acute renal failure: Qualifiers: Acute renal failure type: unspecified Qualified Code(s): N17.9 - Acute kidney failure, unspecified Code(s): N17.9 - Acute kidney failure, unspecified Status: Acute Assessment and Plan: Likely prerenal in origin given vaginal bleed and volume loss. Treated with IV fluid and blood products which has improved her BP. Contineu to monitor renal function and urine output. Avoid nephrotoxic agents and renally dose medications. (4) Cirrhosis of liver: Qualifiers: Ascites presence: without ascites Hepatic cirrhosis type: alcoholic cirrhosis Qualified Code(s): K70.30 - Alcoholic cirrhosis of liver without ascites Code(s): K74.60 - Unspecified cirrhosis of liver Status: Chronic Assessment and Plan: Pateitn with elevated bili, chronically low plt, low albumin, ascites and coagulopathy due to her cirrhosis. Monitor Liver function and INR. Lactulose and Rifaximin on hold. Monitor for evidence of hepatic encephalopathy. (5) Coagulopathy: Code(s): D68.9 - Coagulation defect, unspecified Status: Acute Assessment and Plan: INR chroncially elevated. She is on phytonadione chronically at home. She has reveived 3U of FFP. Will follow for continued bleeding. (6) Ascites due to alcoholic cirrhosis: Code(s): K70.31 - Alcoholic cirrhosis of liver with ascites Status: Chronic Assessment and Plan: The patient is due to have paracentesis which will need before discharge. (7) Thrombocytopenia: Code(s): D69.6 - Thrombocytopenia, unspecified Status: Chronic Assessment and Plan: Plt count 124K. She has chronic thrombocytopenia related to her cirrhosis. Suspect sequestration. She has received one unit of plt already. Follow. (8) HTN (hypertension): Qualifiers: Hypertension type: essential hypertension Qualified Code(s): I10 - Essential (primary) hypertension Code(s): I10 - Essential (primary) hypertension Status: Chronic Assessment and Plan: Patietn with hemorrhagic shock as mentioned above. Her home antihypertensives remain on hold. (9) Peripheral neuropathy: Qualifiers: Peripheral neuropathy type: polyneuropathy, other Qualified Code(s): G62.89 - Other specified polyneuropathies Code(s): G62.9 - Polyneuropathy, unspecified Status: Chronic Assessment and Plan: Stable. Resume gabapentin when appropriate. (10) Abnormal thyroid function test: Code(s): R94.6 - Abnormal results of thyroid function studies Status: Acute Assessment and Plan: TSH slightly elevated at 5.4 with normal FT4 and low TT3 with some of these findings related to her current state and from poor synthetic liver function. Would not start levothyroxine at this point but have these retested once she is well. Subjective Date/time seen: 04/27/20 08:53 Interval history: 49yo female with hx of alcoholic cirrhosis here for acute blood loss anemia and vaginal bleeding. Assuming care. Chart reviewed. Discussed case with special duty nurse. Patient admitted for vaginal bleeding and Hgb 3.9.
[2020-04-27 10:14] LABS: Mean Corpuscular HGB Conc 33.3 g/dl (32-36); Mean Corpuscular Hemoglobin 31.1 pg (26-34); Mean Corpuscular Volume 93.3 fl (80-100); Mean Platelet Volume 9.7 fl (7.4-10.4); Platelet Count Result 100 k/mm3 (150-375); Red Blood Count 2.25 M/mm3 (4.2-5.4); Red Cell Distribution Width 18.4 % (11.5-14.5); White Blood Count 10.1 K/mm3 (4.5-10.0)
[2020-04-27 10:30] LABS: Alanine Aminotransferase 17 U/L (4-35); Albumin Level 2.4 g/dL (3.5-5.1); Alkaline Phosphatase 61 U/L (38-126); Aspartate Amino Transferase 40 U/L (14-36); Blood Urea Nitrogen 21 mg/dL (7-17); Calcium 8.2 mg/dL (8.4-10.2); Carbon Dioxide 23 mmol/L (22-30); Chloride 103 mmol/L (98-107); Estimated Glomerular Filt Rate 45; Glucose 118 mg/dL (65-105); INR 1.8; Magnesium 1.6 mg/dL (1.6-2.3); Partial Thromboplastin Time 34.3 SECONDS (22.3-36.8); Potassium 3.5 mmol/L (3.4-5.0); Sodium 134 mmol/L (137-145)
[2020-04-27 10:31] LABS: D Dimer 3.54 ug/mL (<0.48)
[2020-04-27 10:36] LABS: Fibrinogen 144 mg/dl (215-510)
[2020-04-27] MEDS: SODIUM CHLORIDE 0.9% IV 250 ML 30 ML IV CONT (11:54)
--- NOTE | 2020-04-27 12:40 | WPDCNINT ---
Assessment and Plan Assessment and plan (1) Hemorrhagic shock: Code(s): R57.8 - Other shock Status: Acute Assessment and Plan: Secondary to menorrhagia/active vaginal bleeding. Possible due to coagulopathy with INR of 2.7 secondary to liver dysfunction -patient has received multiple units of packed RBCs, platelets, FFP and cryoprecipitate since admission -status posthysteroscopy, dilation and curettage, paracervical block, endometrial ablation by OBGYN. No postprocedure bleeding noted -continue close monitoring in the ICU -H&H q.6 hours, transfuse as needed (2) Vaginal bleeding: Code(s): N93.9 - Abnormal uterine and vaginal bleeding, unspecified Status: Acute Assessment and Plan: Patient was increased vaginal bleeding, status post procedure as above -vitamin K x1 -continue close monitoring (3) Anemia: Qualifiers: Anemia type: other cause Other causes of anemia: other cause, not classified Qualified Code(s): D64.89 - Other specified anemias Code(s): D64.9 - Anemia, unspecified Status: Acute Assessment and Plan: Anemia secondary to increased vaginal bleeding -multiple units of packed RBCs transfused -will repeat H&H transfuse as needed (4) Acute renal failure: Qualifiers: Acute renal failure type: unspecified Qualified Code(s): N17.9 - Acute kidney failure, unspecified Code(s): N17.9 - Acute kidney failure, unspecified Status: Acute Assessment and Plan: Acute kidney injury likely related to volume loss, hypotension, likely prerenal secondary to increased vaginal bleeding. -resuscitated with IV fluids and blood products. -avoid nephrotoxic agent -will obtain BNP with next blood draw (5) Cirrhosis of liver: Qualifiers: Ascites presence: without ascites Hepatic cirrhosis type: alcoholic cirrhosis Qualified Code(s): K70.30 - Alcoholic cirrhosis of liver without ascites Code(s): K74.60 - Unspecified cirrhosis of liver Status: Chronic Assessment and Plan: Patient with history of liver cirrhosis, with elevated bilirubin and LFTs. Thrombocytopenia and ascites. -patient has a history of cirrhosis -monitor LFTs, platelet counts and INR -will monitor for hepatic encephalopathy, lactulose and rifaximin and hold (6) Coagulopathy: Code(s): D68.9 - Coagulation defect, unspecified Status: Acute Assessment and Plan: INR was elevated to 2.7, patient received vitamin K, FFP, cryoprecipitate -will repeat coags and DIC panel with next blood draw (7) Ascites due to alcoholic cirrhosis: Code(s): K70.31 - Alcoholic cirrhosis of liver with ascites Status: Chronic Assessment and Plan: Patient does get frequent paracentesis, will need before discharge (8) Thrombocytopenia: Code(s): D69.6 - Thrombocytopenia, unspecified Status: Chronic Assessment and Plan: Platelet counts of 124, likely secondary liver dysfunction, sequestration, consumptive -patient has received platelets today -will follow count (9) DVT prophylaxis: Code(s): Z29.9 - Encounter for prophylactic measures, unspecified Status: Acute Assessment and Plan: SCDs Additional Plan Discussed with patient updated with her condition and plan of care. I answered all questions Code status: Full code Critical care time spent: 43 minutes Discussed with JOHNIE Norman Due to a high probability of clinically significant, life threatening deterioration, the patient required my highest level of preparedness to intervene emergently and I personally spent this critical care time directly and personally managing the patient. This critical care time included obtaining a history; examining the patient; pulse oximetry; ordering and review of studies; arranging urgent treatment with development of a management plan; evaluation of patient's response to treatment; frequent reassessment; a
[2020-04-27 13:55] LABS: Basophils Absolute Auto 0.1 K/mm3 (0.0-0.1); Basophils Percent Auto 0.7 % (0.2-1.2); Eosinophils Absolute Auto 0.4 K/mm3 (0-0.3); Eosinophils Percent Auto 3.6 % (0-4.4); Hematocrit 23.9 % (37.0-47.0); Hemoglobin 7.9 g/dL (12.0-15.0); Immature Granulocyte Absolute 0.15 K/mm3 (0.00-0.031); Immature Granulocyte Percent A 1.5 % (0-0.5); Lymphocytes Absolute Auto 1.75 K/mm3 (0.9-3.2); Lymphocytes Percent Auto 17.5 % (18.3-44.2); Mean Corpuscular HGB Conc 33.1 g/dl (32-36); Mean Corpuscular Hemoglobin 30.7 pg (26-34); Mean Platelet Volume 9.5 fl (7.4-10.4); Monocytes Absolute Auto 1.2 K/mm3 (0.1-0.6); Monocytes Percent Auto 12.3 % (2.6-8.5); Neutrophils Absolute Auto 6.4 K/mm3 (1.3-6.7); Neutrophils Percent Auto 64.4 % (45.5-73.1); Platelet Count Result 134 k/mm3 (150-375); Red Blood Count 2.57 M/mm3 (4.2-5.4); Red Cell Distribution Width 18.6 % (11.5-14.5)
[2020-04-27 14:02] LABS: INR 1.6; Partial Thromboplastin Time 33.7 SECONDS (22.3-36.8); Prothrombin Time 18.7 Seconds (11.1-14.7)
[2020-04-27 14:05] LABS: D Dimer 3.47 ug/mL (<0.48)
[2020-04-27 14:08] LABS: Fibrinogen 177 mg/dl (215-510)
[2020-04-27 14:21] LABS: Blood Urea Nitrogen 20 mg/dL (7-17); Calcium 8.5 mg/dL (8.4-10.2); Carbon Dioxide 24 mmol/L (22-30); Chloride 102 mmol/L (98-107); Estimated Glomerular Filt Rate 45; Glucose 109 mg/dL (65-105); Magnesium 1.7 mg/dL (1.6-2.3); Potassium 3.5 mmol/L (3.4-5.0); Sodium 134 mmol/L (137-145)
[2020-04-27 20:09] LABS: Hematocrit 25.1 % (37.0-47.0); Hemoglobin 8.2 g/dL (12.0-15.0)
[2020-04-28] VITALS (9 sets, daily range): BP systolic 92–133; BP diastolic 51–70; PULSE 90–100; RESP 16–24; TEMP 36.7–37.2; O2SAT 99–100
[2020-04-28 04:35] LABS: Basophils Absolute Auto 0.1 K/mm3 (0.0-0.1); Basophils Percent Auto 0.7 % (0.2-1.2); Eosinophils Absolute Auto 0.5 K/mm3 (0-0.3); Eosinophils Percent Auto 3.8 % (0-4.4); Hematocrit 23.5 % (37.0-47.0); Hemoglobin 7.9 g/dL (12.0-15.0); Immature Granulocyte Absolute 0.19 K/mm3 (0.00-0.031); Immature Granulocyte Percent A 1.5 % (0-0.5); Lymphocytes Absolute Auto 1.94 K/mm3 (0.9-3.2); Lymphocytes Percent Auto 15.6 % (18.3-44.2); Mean Corpuscular HGB Conc 33.6 g/dl (32-36); Mean Corpuscular Hemoglobin 31.2 pg (26-34); Mean Corpuscular Volume 92.9 fl (80-100); Mean Platelet Volume 9.7 fl (7.4-10.4); Monocytes Absolute Auto 1.2 K/mm3 (0.1-0.6); Monocytes Percent Auto 9.8 % (2.6-8.5); Neutrophils Absolute Auto 8.6 K/mm3 (1.3-6.7); Neutrophils Percent Auto 68.6 % (45.5-73.1); Platelet Count Result 136 k/mm3 (150-375); Red Blood Count 2.53 M/mm3 (4.2-5.4); White Blood Count 12.5 K/mm3 (4.5-10.0)
[2020-04-28 04:47] LABS: INR 1.9; Lactic Acid 2.1 mmol/L (0.7-2.1)
[2020-04-28 04:49] LABS: Alanine Aminotransferase 17 U/L (4-35); Albumin Level 2.4 g/dL (3.5-5.1); Alkaline Phosphatase 80 U/L (38-126); Aspartate Amino Transferase 46 U/L (14-36); Bilirubin,Total 5.8 mg/dL (0.2-1.3); Blood Urea Nitrogen 21 mg/dL (7-17); Calcium 8.4 mg/dL (8.4-10.2); Carbon Dioxide 24 mmol/L (22-30); Chloride 104 mmol/L (98-107); Estimated Glomerular Filt Rate 39; Glucose 118 mg/dL (65-105); Magnesium 1.6 mg/dL (1.6-2.3); Phosphorus 4.1 mg/dL (2.5-4.5); Potassium 3.6 mmol/L (3.4-5.0); Sodium 132 mmol/L (137-145)
--- NOTE | 2020-04-28 10:07 | WPDANESPN ---
Anes - Prog Note Post-Op Date/Time: 04/28/20 10:07 Cardiovascular status: normal Respiratory status: normal Airway patency: baseline Mental status: baseline Post-Op hydration status: normal Vital Signs: Last Vital Signs Temp 37.0 C 04/28/20 08:00 Pulse 97 04/28/20 08:00 Resp 17 04/28/20 08:00 BP 107/63 04/28/20 08:00 Pulse Ox 100 04/28/20 08:00 Pain Score (VAS): 0/10. Patient resting up to chair at time of assessment, appears comfortable. No concerns per RN at time of assessment. I/O: Intake & Output 04/27/20 04/28/20 04/28/20 23:59 07:59 15:59 Intake Total 720 480 200 Output Total 225 450 Balance 495 30 200 Laboratory Tests 04/28/20 04:30 04/28/20 04:30 04/27/20 04/27/20 04/27/20 00:29 10:06 10:06 WBC 10.1 H RBC 2.25 L Hgb 7.0 L D Hct 21.0 L MCV 93.3 D MCH 31.1 D MCHC 33.3 RDW 18.4 H Plt Count 100 L MPV 9.7 Immature Gran % (Auto) Neut % (Auto) Lymph % (Auto) [place] % (Auto) Eos % (Auto) Baso % (Auto) Lymph # (Auto) [place] # (Auto) Eos # (Auto) Baso # (Auto) Abs Immat Gran (auto) Absolute Neuts (auto) Absolute Nucleated RBC Nucleated RBC % PT INR APTT Fibrinogen D-Dimer 3.54 H Sodium Potassium Chloride Carbon Dioxide BUN Creatinine Estim Creat Clear Calc Estimated GFR Glucose Lactic Acid Calcium Phosphorus Magnesium Total Bilirubin AST ALT Alkaline Phosphatase Total Protein Albumin Blood Type A Positive Antibody Screen Negative Crossmatch See Detail 04/27/20 04/27/20 04/27/20 10:06 10:06 13:41 WBC 10.0 RBC 2.57 L Hgb 7.9 L Hct 23.9 L MCV 93.0 MCH 30.7 MCHC 33.1 RDW 18.6 H Plt Count 134 L MPV 9.5 Immature Gran % (Auto) 1.5 H Neut % (Auto) 64.4 Lymph % (Auto) 17.5 L [place] % (Auto) 12.3 H Eos % (Auto) 3.6 Baso % (Auto) 0.7 Lymph # (Auto) 1.75 [place] # (Auto) 1.2 H Eos # (Auto) 0.4 H Baso # (Auto) 0.1 Abs Immat Gran (auto) 0.15 H Absolute Neuts (auto) 6.4 Absolute Nucleated RBC 0.0 Nucleated RBC % 0.0 PT 20.0 H D INR 1.8 APTT 34.3 Fibrinogen 144 L D-Dimer Sodium 134 L Potassium 3.5 Chloride 103 Carbon Dioxide 23 BUN 21 H Creatinine 1.50 H Estim Creat Clear Calc Not Reportable Estimated GFR 45 L Glucose 118 H Lactic Acid Calcium 8.2 L Phosphorus Magnesium 1.6 Total Bilirubin 6.0 H AST 40 H ALT 17 Alkaline Phosphatase 61 Total Protein 6.0 L Albumin 2.4 L Blood Type Antibody Screen Crossmatch 04/27/20 04/27/20 04/27/20 13:41 13:41 19:31 WBC RBC Hgb 8.2 L Hct 25.1 L MCV MCH MCHC RDW Plt Count MPV Immature Gran % (Auto) Neut % (Auto) Lymph % (Auto) [place] % (Auto) Eos % (Auto) Baso % (Auto) Lymph # (Auto) [place] # (Auto) Eos # (Auto) Baso # (Auto) Abs Immat Gran (auto) Absolute Neuts (auto) Absolute Nucleated RBC Nucleated RBC % PT 18.7 H INR 1.6 APTT 33.7 Fibrinogen 177 L D-Dimer 3.47 H Sodium 134 L Potassium 3.5 Chloride 102 Carbon Dioxide 24 BUN 20 H Creatinine 1.50 H Estim Creat Clear Calc Not Reportable Estimated GFR 45 L Glucose 109 H Lactic Acid Calcium 8.5 Phosphorus Magnesium 1.7 Total Bilirubin AST ALT Alkaline Phosphatase Total Protein Albumin Blood Type Antibody Screen Crossmatch 04/28/20 04/28/20 04/28/20 04:30 04:30 04:30 WBC 12.5 H RBC 2.53 L Hgb 7.9 L Hct 23.5 L MCV 92.9 MCH 31.2 MCHC 33.6 RDW 19.0 H Plt Count 136 L MPV 9.7 Immature Gran % (Auto) 1.5 H Neut % (Auto) 68.6 Lymph % (Auto) 15.6 L [place] % (Auto) 9.8 H Eos % (Auto) 3.8 Baso % (Auto) 0.7 Lymph # (Auto) 1.9
--- NOTE | 2020-04-28 12:20 | PM.IMPN ---
Progress Note: A&P Assessment and Plan (1) Hemorrhagic shock: Code(s): R57.8 - Other shock Status: Acute Assessment and Plan: Secondary to active vaginal bleeding and acquired coagulopathy from liver disease. BP has improved with IV fluid and blood products. Vitamin K IV given once. BP better. Resume metoprolol tomorrow. Hold Bumex for a few days. (2) Vaginal bleeding: Code(s): N93.9 - Abnormal uterine and vaginal bleeding, unspecified Status: Acute Assessment and Plan: Primary team to manage active vaginal bleeding. Taken to OR yesterday for hysteroscopy, dilation and curettage, paracervical block, and endometrial ablation. EBL 150mL. (3) Acute renal failure: Qualifiers: Acute renal failure type: unspecified Qualified Code(s): N17.9 - Acute kidney failure, unspecified Code(s): N17.9 - Acute kidney failure, unspecified Status: Acute Assessment and Plan: Likely prerenal in origin given vaginal bleed and volume loss. Consider also ATN from [facility]. Treated with IV fluid and blood products which has improved her BP. IV fluids off. Cr about the same at 1.7. Urine output unreliable with incontinent voids. Continue to hold Bumex. If discharged, check renal function in a few days. (4) Cirrhosis of liver: Qualifiers: Ascites presence: without ascites Hepatic cirrhosis type: alcoholic cirrhosis Qualified Code(s): K70.30 - Alcoholic cirrhosis of liver without ascites Code(s): K74.60 - Unspecified cirrhosis of liver Status: Chronic Assessment and Plan: Pateint with elevated bili, chronically low plt, low albumin, ascites and coagulopathy due to her cirrhosis. LFTs stable. Resume lactulose and Rifaximin. (5) Coagulopathy: Code(s): D68.9 - Coagulation defect, unspecified Status: Acute Assessment and Plan: INR chronically elevated. She is on phytonadione chronically at home. She has received 3U of FFP. INR still 1.9 this morning. (6) Ascites due to alcoholic cirrhosis: Code(s): K70.31 - Alcoholic cirrhosis of liver with ascites Status: Chronic Assessment and Plan: The patient is due to have paracentesis which she had today. Paracentesis removed 2.1L. (7) Thrombocytopenia: Code(s): D69.6 - Thrombocytopenia, unspecified Status: Chronic Assessment and Plan: Plt count dropped to 100K. She has chronic thrombocytopenia related to her cirrhosis. She has received one unit of plt. Will continue to follow. (8) HTN (hypertension): Qualifiers: Hypertension type: essential hypertension Qualified Code(s): I10 - Essential (primary) hypertension Code(s): I10 - Essential (primary) hypertension Status: Chronic Assessment and Plan: Patient with hemorrhagic shock as mentioned above. BP better controlled. Will resume Metoprolol tomorrow. (9) Peripheral neuropathy: Qualifiers: Peripheral neuropathy type: polyneuropathy, other Qualified Code(s): G62.89 - Other specified polyneuropathies Code(s): G62.9 - Polyneuropathy, unspecified Status: Chronic Assessment and Plan: Stable. Resume gabapentin. (10) Abnormal thyroid function test: Code(s): R94.6 - Abnormal results of thyroid function studies Status: Acute Assessment and Plan: TSH slightly elevated at 5.4 with normal FT4 and low TT3 with some of these findings related to her current state and from poor synthetic liver function. Would not start levothyroxine at this point but have these retested once she is well. Will defer to PCP for further evaluation. (11) Anemia: Qualifiers: Anemia type: other cause Other causes of anemia: other cause, not classified Qualified Code(s): D64.89 - Other specified anemias Code(s): D64.9 - Anemia, unspecified Status: Acute Assessment
--- NOTE | 2020-04-28 12:26 | PM.GYNPNOP ---
TIN CAN FEEDER - A/P Postoperative Procedures: Procedures Operation Date: 04/27/20 08:15 Actual Procedures Side Surgeon p SUCTION DILITATION AND CURETTAGE, novasure endometrial ablation, hysteroscopy Dean Huynh MD A: POD#1, doing well. P: Home today. F/u with Dr. Huynh in 1-2 weeks. Reviewed instructions, precautions in detail. Time Spent With Patient Time with patient: less than 15 minutes TIN CAN FEEDER- PN:Subj Post-Op Subjective Date/time seen: 04/28/20 12:00 Resting comfortably in bed. Says she has no pain. Bleeding is minimal. Review of Systems Review of Systems: All systems reviewed & are unremarkable except as noted in HPI and below Exam Narrative: Exam Narrative: AVSS I/O OK ABD soft, nontender. EXT nontender TIN CAN FEEDER - PN: Obj Data Vital Signs Vital Signs: Vital Signs - 24 hr 04/27/20 14:00 04/27/20 14:04 04/27/20 16:00 Temperature 36.8 C 36.6 C Pulse Rate 89 86 84 Respiratory Rate 17 18 Blood Pressure 92/51 L 100/62 Pulse Oximetry 100 100 04/27/20 18:00 04/27/20 20:00 04/27/20 22:00 Temperature 36.8 C Pulse Rate 83 90 96 Respiratory Rate 17 16 Blood Pressure 102/66 105/61 Pulse Oximetry 100 100 04/28/20 00:00 04/28/20 02:00 04/28/20 04:00 Temperature 36.7 C 36.9 C Pulse Rate 96 92 99 Respiratory Rate 20 18 20 Blood Pressure 107/61 92/61 L 96/51 L Pulse Oximetry 100 100 100 04/28/20 06:00 04/28/20 08:00 04/28/20 10:00 Temperature 37.0 C Pulse Rate 92 97 94 Respiratory Rate 17 Blood Pressure 107/63 Pulse Oximetry 100 04/28/20 12:00 04/28/20 12:25 Temperature 37.2 C Pulse Rate 100 97 Respiratory Rate 24 H 16 Blood Pressure 133/70 133/70 Pulse Oximetry 100 99 Intake/Output Intake/Output: Intake & Output 04/25/20 04/26/20 04/27/20 04/28/20 23:59 23:59 23:59 23:59 Intake Total 4943 680 Output Total 300 450 Balance 4643 230 Meds/Results Medications: Active Medications Generic Name Dose Route Start Last Admin Trade Name Freq PRN Reason Stop Dose Admin Hydrocodone Bitart/Acetaminophen 1 tab 04/27/20 08:47 [place] 5-325 Mg PO Q3H PRN Pain Rated 5 or Less Naloxone HCl 0.1 mg 04/27/20 08:47 Narcan IV PUSH Q2M PRN Respiratory rate less than 10 Ondansetron HCl 4 mg 04/27/20 08:47 Zofran Inj IV PUSH Q6H PRN Nausea And Vomiting Labs CBC & Chem 7: 04/28/20 04:30 04/28/20 04:30 Labs: Laboratory Results - last 24 hr 04/27/20 04/27/20 04/27/20 00:29 13:41 13:41 WBC 10.0 RBC 2.57 L Hgb 7.9 L Hct 23.9 L MCV 93.0 MCH 30.7 MCHC 33.1 RDW 18.6 H Plt Count 134 L MPV 9.5 Immature Gran % (Auto) 1.5 H Neut % (Auto) 64.4 Lymph % (Auto) 17.5 L [place] % (Auto) 12.3 H Eos % (Auto) 3.6 Baso % (Auto) 0.7 Lymph # (Auto) 1.75 [place] # (Auto) 1.2 H Eos # (Auto) 0.4 H Baso # (Auto) 0.1 Abs Immat Gran (auto) 0.15 H Absolute Neuts (auto) 6.4 Absolute Nucleated RBC 0.0 Nucleated RBC % 0.0 PT 18.7 H INR 1.6 APTT 33.7 Fibrinogen 177 L D-Dimer 3.47 H Sodium Potassium Chloride Carbon Dioxide BUN Creatinine Estim Creat Clear Calc Estimated GFR Glucose Lactic Acid Calcium Phosphorus Magnesium Total Bilirubin AST ALT Alkaline Phosphatase Total Protein Albumin Crossmatch See Detail 04/27/20 04/27/20 04/28/20 13:41 19:31 04:30 WBC 12.5 H RBC 2.53 L Hgb 8.2 L 7.9 L Hct 25.1 L 23.5 L MCV 92.9 MCH 31.2 MCHC 33.6 RDW 19.0 H Plt Count 136 L MPV 9.7 Immature Gran % (Auto) 1.5 H Neut % (Auto) 68.6 Lymph % (Auto) 15.6 L [place] % (Auto) 9.8 H Eos % (Auto) 3.8 Baso % (Auto) 0.7 Lymph # (Auto) 1.94 [place] # (Auto) 1.2 H Eos # (Auto) 0.5 H Baso # (Auto) 0.1 Abs Immat Gran (auto) 0.19 H Absolute Neuts (auto) 8.6 H Absolute Nucleated RBC 0.0 Nuc
--- NOTE | 2020-04-28 12:56 | WPDINTPN ---
Progress Note: A&P Assessment and Plan (1) Hemorrhagic shock: Code(s): R57.8 - Other shock Status: Acute Assessment and Plan: RESOLVED Secondary to menorrhagia/active vaginal bleeding. Possible due to coagulopathy with INR of 2.7 secondary to liver dysfunction -patient has received multiple units of packed RBCs, platelets, FFP and cryoprecipitate since admission -04/27/2020: Status posthysteroscopy, dilation and curettage, paracervical block, endometrial ablation by OBGYN. No postprocedure bleeding noted -continue close monitoring in the ICU -hemoglobin has been stable with no further vaginal bleeding (2) Vaginal bleeding: Code(s): N93.9 - Abnormal uterine and vaginal bleeding, unspecified Status: Acute Assessment and Plan: RESOLVED Patient was increased vaginal bleeding, status post procedure as above -vitamin K x1 -continue close monitoring (3) Anemia: Qualifiers: Anemia type: other cause Other causes of anemia: other cause, not classified Qualified Code(s): D64.89 - Other specified anemias Code(s): D64.9 - Anemia, unspecified Status: Acute Assessment and Plan: Anemia secondary to increased vaginal bleeding -multiple units of packed RBCs transfused -hemoglobin has been stable, patient is hemodynamically stable (4) Acute renal failure: Qualifiers: Acute renal failure type: unspecified Qualified Code(s): N17.9 - Acute kidney failure, unspecified Code(s): N17.9 - Acute kidney failure, unspecified Status: Acute Assessment and Plan: Acute kidney injury likely related to volume loss, hypotension, likely prerenal secondary to increased vaginal bleeding. -resuscitated with IV fluids and blood products. -avoid nephrotoxic agent -will obtain BNP with next blood draw (5) Cirrhosis of liver: Qualifiers: Ascites presence: without ascites Hepatic cirrhosis type: alcoholic cirrhosis Qualified Code(s): K70.30 - Alcoholic cirrhosis of liver without ascites Code(s): K74.60 - Unspecified cirrhosis of liver Status: Chronic Assessment and Plan: Patient with history of liver cirrhosis, with elevated bilirubin and LFTs. Thrombocytopenia and ascites. -patient has a history of cirrhosis -monitor LFTs, platelet counts and INR -will monitor for hepatic encephalopathy, lactulose and rifaximin and hold (6) Coagulopathy: Code(s): D68.9 - Coagulation defect, unspecified Status: Acute Assessment and Plan: INR was elevated to 2.7, patient received vitamin K, FFP, cryoprecipitate -INR improving (7) Ascites due to alcoholic cirrhosis: Code(s): K70.31 - Alcoholic cirrhosis of liver with ascites Status: Chronic Assessment and Plan: Patient does get frequent paracentesis, -have ordered IR to perform a paracentesis, ascitic fluid labs have been ordered (8) Thrombocytopenia: Code(s): D69.6 - Thrombocytopenia, unspecified Status: Chronic Assessment and Plan: Platelet counts of improving, 136 this morning. likely secondary liver dysfunction, sequestration, consumptive -patient has received platelets today -will follow count (9) DVT prophylaxis: Code(s): Z29.9 - Encounter for prophylactic measures, unspecified Status: Acute Assessment and Plan: SCDs Additional Plan Discussed with patient updated with her condition and plan of care. I answered all questions. Patient is aware that she will be having paracentesis today Code status: Full code Critical care time spent: 33 minutes Discussed with JOHNIE Buchanan Due to a high probability of clinically significant, life threatening deterioration, the patient required my highest level of preparedness to intervene emergently and I personally spent this critical care time directly and personally managing the patient. This critical care time included obtaining a history; examining the patient; p
--- NOTE | 2020-04-28 13:04 | PC.NURSE ---
Patient down to radiology with MADDIE Bliss for paracentesis.
--- NOTE | 2020-04-28 15:13 | PM.DS ---
DS: Admitting Diagnosis Admitting Diagnosis Admitting Diagnosis: Anemia Heavy vaginal bleeding DS: Discharge Diagnosis Discharge Diagnosis (1) Ascites due to alcoholic cirrhosis: Code(s): K70.31 - Alcoholic cirrhosis of liver with ascites Status: Chronic (2) Hemorrhagic shock: Code(s): R57.8 - Other shock Status: Acute (3) Vaginal bleeding: Code(s): N93.9 - Abnormal uterine and vaginal bleeding, unspecified Status: Acute (4) Anemia: Qualifiers: Anemia type: other cause Other causes of anemia: other cause, not classified Qualified Code(s): D64.89 - Other specified anemias Code(s): D64.9 - Anemia, unspecified Status: Acute DS: Summary Time Spent with Patient Time attestation: Total time spent providing and/or coordinating discharge services: DS: Data Data Completed and Pending Pending studies at discharge: Pending at discharge 04/27/20 07:54 Surgical [PTH] Routine 04/28/20 11:52 Cytology [PTH] Routine Labs on day of discharge: Labs from last 24 hours 04/28/20 04/28/20 04/28/20 04:30 04:30 04:30 WBC RBC Hgb Hct MCV MCH MCHC RDW Plt Count MPV Immature Gran % (Auto) Neut % (Auto) Lymph % (Auto) [place] % (Auto) Eos % (Auto) Baso % (Auto) Lymph # (Auto) [place] # (Auto) Eos # (Auto) Baso # (Auto) Abs Immat Gran (auto) Absolute Neuts (auto) Absolute Nucleated RBC Nucleated RBC % PT 21.0 H INR 1.9 APTT 34.0 Sodium 132 L Potassium 3.6 Chloride 104 Carbon Dioxide 24 BUN 21 H Creatinine 1.70 H Estim Creat Clear Calc Not Reportable Estimated GFR 39 L Glucose 118 H Lactic Acid 2.1 Calcium 8.4 Phosphorus 4.1 Magnesium 1.6 Total Bilirubin 5.8 H AST 46 H ALT 17 Alkaline Phosphatase 80 Total Protein 6.0 L Albumin 2.4 L 04/28/20 04/27/20 04:30 19:31 WBC 12.5 H RBC 2.53 L Hgb 7.9 L 8.2 L Hct 23.5 L 25.1 L MCV 92.9 MCH 31.2 MCHC 33.6 RDW 19.0 H Plt Count 136 L MPV 9.7 Immature Gran % (Auto) 1.5 H Neut % (Auto) 68.6 Lymph % (Auto) 15.6 L [place] % (Auto) 9.8 H Eos % (Auto) 3.8 Baso % (Auto) 0.7 Lymph # (Auto) 1.94 [place] # (Auto) 1.2 H Eos # (Auto) 0.5 H Baso # (Auto) 0.1 Abs Immat Gran (auto) 0.19 H Absolute Neuts (auto) 8.6 H Absolute Nucleated RBC 0.0 Nucleated RBC % 0.0 PT INR APTT Sodium Potassium Chloride Carbon Dioxide BUN Creatinine Estim Creat Clear Calc Estimated GFR Glucose Lactic Acid Calcium Phosphorus Magnesium Total Bilirubin AST ALT Alkaline Phosphatase Total Protein Albumin Discharge Plan Discharge Attending physician on discharge: Dean Huynh Consulting providers: Dean Huynh ; Zac Lynch Discharging Clinician: Terry Harrell Anticipated Discharge Date/Time: 04/28/20 14:32 Patient Disposition: Home, Self-Care Activity: pelvic rest Diet: low sodium Discharge Instructions: Call or return if temperature above 100.4? F, increased abdominal pain, increased vaginal bleeding or any new problems. Stand Alone Forms: General Discharge Information Follow-up/Referrals: J Luis Mcghee MD [Primary Care Provider] - Call for Appointment Dean Huynh MD [Physician] - (1-2 weeks) Discharge Medications: New hydrocodone-acetaminophen 5-325 mg Tablet 1 tab PO Q3H PRN (Reason: Pain Rated 5 Or Less) Qty: 30 RF: 0 Continued ferrous sulfate 325 mg (65 mg iron) tablet 325 mg PO BID Qty: 30 RF: 2 folic acid 1 mg tablet 1 mg PO DAILY Qty: 30 RF: 2 magnesium oxide 400 mg magnesium tablet 400 mg PO DAILY Qty: 30 RF: 2 metoprolol succinate 50 mg tablet extended release 24 hr 50 mg PO DAILY Qty: 30 RF: 2 pantoprazole 40 mg tablet,delayed release (DR/EC) 40 mg PO QAM Qty: 30 RF: 2 ph
[2020-04-28 17:25] LABS: Appearance Peritoneal Fluid Hazy (Clear); Source Peritoneal Fluid Peritoneal Fluid
[2020-04-28 17:26] LABS: Color Peritoneal Fluid Red (Colorless); Lymphocytes Peritoneal Fluid 45 %; Macrophages Peritoneal Fluid 9 %; Monocytes Peritoneal Fluid 27 %; Neutrophils Peritoneal Fluid 19 % (0-25); Nucleated Cells Peritoneal Flu 100 /uL (0-500); RBC Peritoneal Fluid 18592 /uL (0-100000)
[2020-04-30 23:31] LABS: Albumin Peritoneal Fluid 0.5 g/dL
--- NOTE | 2020-05-03 09:00 | PC.NURSE ---
Surgical specimen shows proliferative endometrium with stromal breakdown. Faxed to Dr. Mcghee. Dr. Pierre aware of findings.
[2020-05-04 05:38] LABS: Glucose Peritoneal Fluid 127 mg/dL; LDH Peritoneal Fluid 118 U/L (<63); Total Protein Peritoneal Fluid <3.0 g/dL
--- NOTE | 2020-05-08 07:04 | PC.NURSE ---
Ascites cx is negative. Dr. Ignacio velasquez.
== END 2020-04-28 16:10 | disposition home or self-care (01) | DRG 744 ==
LOC: ANHED 04-27 01:24 → ANHIMU 04-27 01:33 → ANHICU 04-27 05:39
PROVIDERS: Anesthesiology; Internal Medicine; Admitting Provider Student in an Organized Health Care Education/Training Program; Emergency Provider Emergency Medicine; PCP Emergency Medicine; Visit Provider Obstetrics & Gynecology
PROC: 0UDB8ZX Extraction of Endometrium, Via Natural or Artificial Opening Endoscopic, Diagnostic (ICD-10-PCS; principal; 2020-04-27 08:15)
DX: N93.9 Abnormal uterine and vaginal bleeding, unspecified (principal); R57.8 Other shock; D62 Acute posthemorrhagic anemia; N17.9 Acute kidney failure, unspecified; D68.4 Acquired coagulation factor deficiency; N92.0 Excessive and frequent menstruation with regular cycle; K70.31 Alcoholic cirrhosis of liver with ascites; K70.40 Alcoholic hepatic failure without coma; F41.9 Anxiety disorder, unspecified; R94.6 Abnormal results of thyroid function studies; D63.8 Anemia in other chronic diseases classified elsewhere; F32.9 Major depressive disorder, single episode, unspecified; I10 Essential (primary) hypertension; G62.9 Polyneuropathy, unspecified; D69.6 Thrombocytopenia, unspecified
CPT/HCPCS: 36415; 36430; 49083; 80048; 80053; 81025; 82042; 82945; 83605; 83615; 83735; 84100; 84157; 84439; 84443; 84480; 85014; 85018; 85025; 85027; 85380; 85384; 85610; 85730; 86850; 86900; 86901; 86920; 87070; 87075; 87205; 88104; 88108; 88305; 89051; 96361; 96365; 96375; 99285; A9270; G0378; J0330; J3010; J3430; J7030; J7050; J7120; P9012; P9016; P9017; P9034

== ENCOUNTER 2020-05-08 13:12 | Outpatient (RCR) | payer BC, SELFPAY ==
--- NOTE | ~2020-05-08 | US_ITS ---
EXAMINATION: US paracentesis abd w/image DATE: 04/07/2020 10:58 INDICATION: Ascites. TECHNIQUE: The procedure and its risks and benefits were discussed with the patient. Potential risks discussed included bleeding and infection. The skin was prepped and draped in sterile fashion. 1% lid ocaine was used for local anesthesia. Under ultrasound guidance, a 5 Fr catheter with trochar was adv anced into the ascites in the left mid abdomen. Fluid was aspirated into vacuum bottles. The catheter was removed, and a dressing was applied. There were no immediate complications. FINDINGS: Ultrasound images demonstrate ascites and the catheter within the fluid. IMPRESSION: 1. Successful ultrasound-guided paracentesis yielding 3100 mL of cloudy roni-colored fluid. Reviewed, dictated and finalized at location A. IMPRESSION: 1. Successful ultrasound-guided paracentesis yielding 3100 mL of cloudy roni- colored fluid.
--- NOTE | ~2020-05-08 | US_ITS ---
EXAMINATION: US paracentesis abd w/image DATE: 05/08/2020 14:10 INDICATION: Ascites. TECHNIQUE: The procedure and its risks and benefits were discussed with the patient. Potential risks discussed included bleeding and infection. The skin was prepped and draped in sterile fashion. 1% lid ocaine was used for local anesthesia. Under ultrasound guidance, a 5 Fr catheter with trochar was adv anced into the ascites in the right lower quadrant. Fluid was aspirated into vacuum bottles. The cath eter was removed, and a dressing was applied. There were no immediate complications. FINDINGS: Ultrasound images demonstrate ascites and the catheter within the fluid. Prominent body wall edema. IMPRESSION: 1. Successful ultrasound-guided paracentesis yielding 1100 mL of yellow fluid. Reviewed, dictated and finalized at location A.
== END 2020-05-22 23:59 | disposition home or self-care (01) ==
LOC: ANHIMG 13:12
PROVIDERS: PCP Emergency Medicine; Visit Provider Emergency Medicine
DX: K74.60 Unspecified cirrhosis of liver (principal); R18.8 Other ascites
CPT/HCPCS: 49083